=== PATIENT | female | born 1975 | race Caucasian/White ===

== ENCOUNTER 2021-01-06 14:52 | Emergency (ER) | payer OTHER ==
[~2021-01-06 14:52] MED LIST: ZPAK PO
[2021-01-06 16:57] LABS: BASOPHIL 0.8 % (0-2); EOSINOPHIL 1.5 % (0-5); HCT 37.6 % (37.0-47.0); HGB 12.4 g/dl (12.5-16.0); LYMPHOCYTE 27.3 % (15-48); MCH 32.6 pg (25.0-31.0); MCV 98.9 fL (78.0-100.0); MONOCYTE 8.1 % (0-12); NRBC 0; PLT 205 K/uL (150-400); RDW 11.8 % (11.5-14.0)
[2021-01-06 17:14] LABS: ALBUMIN 3.7 g/dL (3.4-5.0); BILIRUBIN - TOTAL 0.4 mg/dL (0.2-1.0); BUN/CREAT RATIO (CALC) 16.9 RATIO; CREATININE 0.65 mg/dL (0.51-0.95); GLOBULIN (CALCULATION) 2.9 g/dL; POTASSIUM 4.3 mmol/L (3.5-5.1); TOTAL PROTEIN 6.6 g/dL (6.4-8.2)
== END 2021-01-06 17:54 | disposition home or self-care (01) ==
LOC: FER 14:52
PROVIDERS: Nurse Practitioner Family
DX: M62.838 Other muscle spasm (principal); Z88.5 Allergy status to narcotic agent
CPT/HCPCS: 36415; 70450; 72125; 80053; 85025; 96372; J1100; J1885